=== PATIENT | female | born 1960 | race Caucasian/White ===

== ENCOUNTER → 2016-12-07 | Outpatient (CLI) | payer OTHER ==
--- NOTE | 2016-12-08 01:35 | REP ---
Clinical: Lower back pain. Technique: AP, lateral, bilateral oblique and coned-down views of the lumbosacral spine. Comparison: 05/27/2007. Findings: Mild chronic dextroconvex scoliosis is again appreciated. Grade 1 anterolisthesis at the L4-5 level of approximately 4 mm noted. Advanced multilevel degenerative changes are also appreciated throughout the visualized lower thoracic to lumbosacral spine. Findings include marginal osteophytes, endplate sclerosis, disc space narrowing and hypertrophic facet changes. No acute fracture / compression injury. Impression: 1. Grade 1 anterolisthesis at the L4-5 level. 2. Moderate to advanced multilevel degenerative changes throughout the visualized thoracolumbar spine. 3. No acute fracture / compression injury Signed by Luc Chau MD 12/08/2016 01:27 A
== END ==
LOC: M LRY 12:22
PROVIDERS: ATTEND Family Medicine
DX: M51.36 Other intervertebral disc degeneration, lumbar region (principal); M43.16 Spondylolisthesis, lumbar region; M54.5 Low back pain

== ENCOUNTER → 2016-12-11 | Outpatient (REF) | payer OTHER ==
[2016-12-11 16:57] LABS: MEAN CORPUSCULAR HEMOGLOBIN 30.1 pg (27.0-33.0); MEAN CORPUSCULAR HGB CONC 34.8 g/dl (32.0-36.5); MEAN CORPUSCULAR VOLUME 86.6 fl (80.0-96.0); RED CELL DISTRIBUTION WIDTH 12.7 % (11.5-14.5); WHITE BLOOD COUNT 7.5 K/mm3 (4.0-10.0)
[2016-12-11 17:11] LABS: ALBUMIN 3.8 GM/DL (3.2-5.2); ANION GAP 8 MEQ/L (8-16); BLOOD UREA NITROGEN 24 MG/DL (7-18); CARBON DIOXIDE LEVEL 28 MEQ/L (21-32); CHLORIDE LEVEL 101 MEQ/L (98-107); CHOLESTEROL LEVEL 219 MG/DL (<200); CREATININE FOR GFR 0.69 MG/DL (0.55-1.02); GLOMERULAR FILTRATION RATE > 60.0 (>51); GLUCOSE, FASTING 285 MG/DL (70-105); PHOSPHORUS LEVEL 3.8 MG/DL (2.5-4.9); POTASSIUM SERUM 4.9 MEQ/L (3.5-5.1); SODIUM LEVEL 137 MEQ/L (136-145); TRIGLYCERIDES LEVEL 234 MG/DL (<150)
== END ==
LOC: M SFHCLERA 10:06
PROVIDERS: ATTEND Family Medicine
DX: E53.8 Deficiency of other specified B group vitamins (principal); E11.40 Type 2 diabetes mellitus with diabetic neuropathy, unspecified; E78.5 Hyperlipidemia, unspecified; I10 Essential (primary) hypertension

== ENCOUNTER → 2017-01-26 | Outpatient (REF) | payer OTHER | LOC: M SFHCWAGY 13:21 | PROVIDERS: ATTEND Family Medicine | DX: Z12.4 Encounter for screening for malignant neoplasm of cervix (principal) ==

== ENCOUNTER → 2017-03-22 | Outpatient (REF) | payer OTHER ==
[2017-03-22 16:27] LABS: VITAMIN B12 LEVEL 297 PG/ML (247-911)
[2017-03-22 16:32] LABS: ALBUMIN 3.9 GM/DL (3.2-5.2); ALBUMIN/GLOBULIN RATIO 1.44 (1.00-1.93); ALKALINE PHOSPHATASE 57 U/L (45-117); ALT/SGPT 25 U/L (12-78); ANION GAP 10 MEQ/L (8-16); AST/SGOT 9 U/L (15-37); BILIRUBIN,TOTAL 0.9 MG/DL (0.2-1.0); BLOOD UREA NITROGEN 18 MG/DL (7-18); CALCIUM LEVEL 8.9 MG/DL (8.5-10.1); CARBON DIOXIDE LEVEL 26 MEQ/L (21-32); CHLORIDE LEVEL 100 MEQ/L (98-107); CHOLESTEROL LEVEL 129 MG/DL (<200); CREATININE FOR GFR 0.59 MG/DL (0.55-1.02); GLOMERULAR FILTRATION RATE > 60.0 (>51); GLUCOSE, FASTING 337 MG/DL (70-105); POTASSIUM SERUM 4.3 MEQ/L (3.5-5.1); SODIUM LEVEL 136 MEQ/L (136-145); TOTAL PROTEIN 6.6 GM/DL (6.4-8.2); TRIGLYCERIDES LEVEL 224 MG/DL (<150)
[2017-03-22 17:53] LABS: MEAN CORPUSCULAR HEMOGLOBIN 28.2 pg (27.0-33.0); MEAN CORPUSCULAR HGB CONC 33.3 g/dl (32.0-36.5); MEAN CORPUSCULAR VOLUME 84.5 fl (80.0-96.0); RED CELL DISTRIBUTION WIDTH 12.6 % (11.5-14.5); WHITE BLOOD COUNT 8.4 10^3/uL (4.0-10.0)
[2017-03-22 21:36] LABS: EOSINOPHILS 2 % (0-5); PLATELET CLUMPS SMALL AMT
== END ==
LOC: M SFHCLERA 11:32
PROVIDERS: ATTEND Family Medicine
DX: E11.65 Type 2 diabetes mellitus with hyperglycemia (principal); Z86.39 Personal history of other endocrine, nutritional and metabolic disease

== ENCOUNTER → 2017-04-03 | Outpatient (REF) | payer OTHER | LOC: M SFHCLERA 10:44 | PROVIDERS: ATTEND Family Medicine | DX: E53.8 Deficiency of other specified B group vitamins (principal) ==

== ENCOUNTER → 2017-04-17 | Outpatient (CLI) | payer OTHER ==
--- NOTE | 2017-04-17 14:15 | REP ---
BILATERAL SCREENING DIGITAL MAMMOGRAM: There are no palpable abnormalities or other breast complaints. The patient states that she/he has not had a clinical breast exam in over a year. Comparison is 10/22/2013. There is mildly dense breast parenchyma, unchanged. There are benign calcifications. There is a stable 14 mm nodule in the right breast, unchanged. There has been no interval development of masses, areas of structural distortion or clusters of microcalcifications typical of malignancy. IMPRESSION: There is no evidence of malignancy. BIRADS category 2 benign findings. The patient should have a repeat mammogram in 1 year. This mammogram was interpreted with the aid of an FDA-approved computer-aided detection system. A. Negative x-ray reports should not delay biopsy if a dominant or clinically suspicious mass is present. B. Not all breast cancers are t identified by x-ray. C. Adenosis and dense breasts may obscure an underlying neoplasm. Patient letter M1.
== END ==
LOC: M WHC 12:31
PROVIDERS: ATTEND Family Medicine
DX: Z12.31 Encounter for screening mammogram for malignant neoplasm of breast (principal)

== ENCOUNTER → 2017-07-24 | Outpatient (REF) | payer OTHER ==
[2017-07-24 12:10] LABS: ESTIMATED AVERAGE GLUCOSE 183 MG/DL (60-110)
== END ==
LOC: M SFHCLERA 08:52
DX: E11.65 Type 2 diabetes mellitus with hyperglycemia (principal)
CPT/HCPCS: 83036

== ENCOUNTER → 2017-09-07 | Outpatient (CLI) | payer OTHER | LOC: M LRY 10:38 | DX: M16.0 Bilateral primary osteoarthritis of hip (principal); M25.552 Pain in left hip; M25.551 Pain in right hip | CPT/HCPCS: 73502 ==

== ENCOUNTER → 2017-09-07 | Outpatient (REF) | payer OTHER ==
[2017-09-07 17:13] LABS: HEMATOCRIT 40.9 % (36.0-47.0); HEMOGLOBIN 13.4 g/dl (12.0-16.0); MEAN CORPUSCULAR HEMOGLOBIN 27.9 pg (27.0-33.0); MEAN CORPUSCULAR HGB CONC 32.8 g/dl (32.0-36.5); MEAN CORPUSCULAR VOLUME 85.2 fl (80.0-96.0); PLATELET COUNT, AUTOMATED 229 10^3/uL (150-450); RED CELL DISTRIBUTION WIDTH 12.5 % (11.5-14.5); WHITE BLOOD COUNT 9.6 10^3/uL (4.0-10.0)
[2017-09-07 17:31] LABS: ALBUMIN 3.9 GM/DL (3.2-5.2); ALBUMIN/GLOBULIN RATIO 1.39 (1.00-1.93); ALKALINE PHOSPHATASE 66 U/L (45-117); ALT/SGPT 21 U/L (12-78); ANION GAP 9 MEQ/L (8-16); AST/SGOT 9 U/L (7-37); BILIRUBIN,TOTAL 0.9 MG/DL (0.2-1.0); BLOOD UREA NITROGEN 15 MG/DL (7-18); C REACTIVE PROTEIN QUANTITATIV < 0.30 MG/DL (0.00-0.30); CALCIUM LEVEL 8.5 MG/DL (8.5-10.1); CARBON DIOXIDE LEVEL 30 MEQ/L (21-32); CHLORIDE LEVEL 102 MEQ/L (98-107); CREATININE FOR GFR 0.54 MG/DL (0.55-1.30); GLOMERULAR FILTRATION RATE > 60.0 (>51); GLUCOSE, FASTING 159 MG/DL (70-100); LIPASE 112 U/L (73-393); POTASSIUM SERUM 3.8 MEQ/L (3.5-5.1); RHEUMATOID FACTOR QUANT < 10.0 IU/ML (0-15.0); SODIUM LEVEL 141 MEQ/L (136-145); TOTAL PROTEIN 6.7 GM/DL (6.4-8.2)
[2017-09-07 17:43] LABS: ERYTHROCYTE SEDIMENTATION RATE 10 mm/hr (0-30)
[2017-09-11 00:07] LABS: ANTI DOUBLE STRAND-DNA AB 10 IU/mL (0-9); ANTINUCLEAR ANTIBODIES DIRECT Positive (Negative); RNP ANTIBODIES <0.2 AI (0.0-0.9); SJOGREN'S ANTI SS-A <0.2 AI (0.0-0.9); SJOGREN'S ANTI SS-B <0.2 AI (0.0-0.9); SMITH ANTIBODIES <0.2 AI (0.0-0.9)
== END ==
LOC: M SFHCLERA 10:26
DX: M25.50 Pain in unspecified joint (principal); R06.09 Other forms of dyspnea

== ENCOUNTER 2017-10-11 11:10 | Day surgery (SDC) | payer OTHER ==
[~2017-10-11 11:10] MED LIST: LIDOCAINE 2% MDV 20 ML VIAL As Ordered; PROPOFOL 200 MG/20 ML VIAL As Ordered
[2017-10-11] MEDS: NS 1,000 ML IV (12:42)
[2017-10-11] MEDS ORDERED: PROPOFOL 200 MG/20 ML VIAL As Ordered (13:59)
== END 2017-10-11 14:50 | disposition home or self-care (01) ==
LOC: M OPP 11:10
DX: Z12.11 Encounter for screening for malignant neoplasm of colon (principal); D12.2 Benign neoplasm of ascending colon; D12.4 Benign neoplasm of descending colon; D12.3 Benign neoplasm of transverse colon; K57.30 Diverticulosis of large intestine without perforation or abscess without bleeding; K64.8 Other hemorrhoids; R12 Heartburn; K31.7 Polyp of stomach and duodenum; R07.89 Other chest pain; I10 Essential (primary) hypertension; E78.5 Hyperlipidemia, unspecified; E10.9 Type 1 diabetes mellitus without complications; K21.9 Gastro-esophageal reflux disease without esophagitis; M19.90 Unspecified osteoarthritis, unspecified site; M54.9 Dorsalgia, unspecified; M79.7 Fibromyalgia; M32.9 Systemic lupus erythematosus, unspecified; F41.9 Anxiety disorder, unspecified; F32.9 Major depressive disorder, single episode, unspecified; R06.83 Snoring; G47.30 Sleep apnea, unspecified; Z79.82 Long term (current) use of aspirin; Z79.899 Other long term (current) drug therapy; Z79.4 Long term (current) use of insulin; Z80.9 Family history of malignant neoplasm, unspecified
CPT/HCPCS: 45385

== ENCOUNTER → 2018-01-02 | Outpatient (REF) | payer OTHER ==
[2018-01-02 16:41] LABS: BASO # 0.1 10^3/uL (0.0-0.2); BASO % 0.3 % (0.0-1.0); EOS # 0.1 10^3/uL (0.0-0.50); EOS % 0.5 % (0.0-3.0); HEMATOCRIT 36.8 % (36.0-47.0); IMMATURE GRANULOCYTE % 0.4 % (0-3.0); LYMPH # 3.3 10^3/uL (1.5-4.5); MEAN CORPUSCULAR HGB CONC 32.6 g/dl (32.0-36.5); MEAN CORPUSCULAR VOLUME 82.7 fl (80.0-96.0); MONO # 0.8 10^3/uL (0.0-0.8); MONO % 5.9 % (0.0-5.0); NEUTROPHILS % 69.9 % (36.0-66.0); PLATELET COUNT, AUTOMATED 317 10^3/uL (150-450); RED BLOOD COUNT 4.45 10^6/uL (4.00-5.40); RED CELL DISTRIBUTION WIDTH 14.3 % (11.5-14.5); WHITE BLOOD COUNT 14.3 10^3/uL (4.0-10.0)
[2018-01-02 17:04] LABS: ALBUMIN 3.1 GM/DL (3.2-5.2); ALBUMIN/GLOBULIN RATIO 0.86 (1.00-1.93); ALKALINE PHOSPHATASE 67 U/L (45-117); ALT/SGPT 16 U/L (12-78); ANION GAP 11 MEQ/L (8-16); AST/SGOT 11 U/L (7-37); BILIRUBIN,TOTAL 0.5 MG/DL (0.2-1.0); BLOOD UREA NITROGEN 18 MG/DL (7-18); CALCIUM LEVEL 8.6 MG/DL (8.5-10.1); CARBON DIOXIDE LEVEL 23 MEQ/L (21-32); CHLORIDE LEVEL 104 MEQ/L (98-107); CHOLESTEROL LEVEL 118 MG/DL (<200); CREATININE FOR GFR 0.98 MG/DL (0.55-1.30); GLOMERULAR FILTRATION RATE > 60.0 (>51); GLUCOSE, FASTING 154 MG/DL (70-100); HDL CHOLESTEROL 50 MG/DL (>40); NON-HDL-C 68 MG/DL; POTASSIUM SERUM 5.1 MEQ/L (3.5-5.1); SODIUM LEVEL 138 MEQ/L (136-145); TOTAL PROTEIN 6.7 GM/DL (6.4-8.2); TRIGLYCERIDES LEVEL 190 MG/DL (<150)
[2018-01-02 17:20] LABS: ESTIMATED AVERAGE GLUCOSE 154 MG/DL (60-110)
[2018-01-02 17:40] LABS: MAU/CREAT RATIO 356.7 MCG/MG (0.0-30.0)
== END ==
LOC: M SFHCLERA 13:34
DX: E11.40 Type 2 diabetes mellitus with diabetic neuropathy, unspecified (principal); K21.9 Gastro-esophageal reflux disease without esophagitis
CPT/HCPCS: 83735

== ENCOUNTER → 2018-01-04 | Outpatient (REF) | payer OTHER ==
[2018-01-04 11:40] LABS: MAGNESIUM LEVEL 1.1 MG/DL (1.8-2.4)
== END ==
LOC: M SFHCLERA 09:26
DX: K21.9 Gastro-esophageal reflux disease without esophagitis (principal)
CPT/HCPCS: 83735

== ENCOUNTER → 2018-01-07 | Outpatient (REF) | payer OTHER ==
[2018-01-07 18:00] LABS: MAGNESIUM LEVEL 1.5 MG/DL (1.8-2.4)
== END ==
LOC: M SFHCLERA 13:06
DX: E83.42 Hypomagnesemia (principal)
CPT/HCPCS: 83735

== ENCOUNTER → 2018-01-17 | Outpatient (REF) | payer OTHER ==
[2018-01-17 16:58] LABS: MAGNESIUM LEVEL 1.1 MG/DL (1.8-2.4)
== END ==
LOC: M SFHCLERA 12:03
DX: E83.42 Hypomagnesemia (principal)
CPT/HCPCS: 83735

== ENCOUNTER → 2018-01-22 | Outpatient (REF) | payer OTHER ==
[2018-01-22 16:45] LABS: MAGNESIUM LEVEL 1.3 MG/DL (1.8-2.4)
== END ==
LOC: M SFHCLERA 11:47
DX: E83.42 Hypomagnesemia (principal)

== ENCOUNTER → 2018-01-30 | Outpatient (REF) | payer OTHER ==
[2018-01-30 17:21] LABS: MAGNESIUM LEVEL 1.5 MG/DL (1.8-2.4)
== END ==
LOC: M SFHCLERA 11:03
DX: K21.9 Gastro-esophageal reflux disease without esophagitis (principal)
CPT/HCPCS: 83735

== ENCOUNTER → 2018-02-05 | Outpatient (REF) | payer OTHER ==
[2018-02-05 12:20] LABS: ALBUMIN 3.2 GM/DL (3.2-5.2); ALBUMIN/GLOBULIN RATIO 1.03 (1.00-1.93); ALKALINE PHOSPHATASE 55 U/L (45-117); ALT/SGPT 14 U/L (12-78); ANION GAP 7 MEQ/L (8-16); AST/SGOT 8 U/L (7-37); BILIRUBIN,TOTAL 0.4 MG/DL (0.2-1.0); BLOOD UREA NITROGEN 17 MG/DL (7-18); CARBON DIOXIDE LEVEL 29 MEQ/L (21-32); CHLORIDE LEVEL 102 MEQ/L (98-107); GLOMERULAR FILTRATION RATE > 60.0 (>51); GLUCOSE, FASTING 163 MG/DL (70-100); MAGNESIUM LEVEL 1.6 MG/DL (1.8-2.4); PHOSPHORUS LEVEL 4.4 MG/DL (2.5-4.9); POTASSIUM SERUM 4.8 MEQ/L (3.5-5.1); SODIUM LEVEL 138 MEQ/L (136-145); TOTAL PROTEIN 6.3 GM/DL (6.4-8.2)
[2018-02-05 12:22] LABS: CREATININE,RANDOM URINE 85.1 MG/DL
== END ==
LOC: M SFHCLERA 09:51
DX: E83.42 Hypomagnesemia (principal)
CPT/HCPCS: 83735

== ENCOUNTER → 2018-02-20 | Outpatient (REF) | payer OTHER ==
[2018-02-20 12:02] LABS: ANION GAP 9 MEQ/L (8-16); BLOOD UREA NITROGEN 12 MG/DL (7-18); CALCIUM LEVEL 8.8 MG/DL (8.5-10.1); CARBON DIOXIDE LEVEL 26 MEQ/L (21-32); CHLORIDE LEVEL 105 MEQ/L (98-107); CREATININE FOR GFR 0.91 MG/DL (0.55-1.30); GLOMERULAR FILTRATION RATE > 60.0 (>51); GLUCOSE, FASTING 178 MG/DL (70-100); MAGNESIUM LEVEL 1.7 MG/DL (1.8-2.4); SODIUM LEVEL 140 MEQ/L (136-145)
[2018-02-20 12:15] LABS: POTASSIUM SERUM 5.2 MEQ/L (3.5-5.1); PTH INTACT 33.4 PG/ML (18.5-88.0)
== END ==
LOC: M SFHCLERA 10:18
DX: E83.42 Hypomagnesemia (principal)
CPT/HCPCS: 83735

== ENCOUNTER → 2018-03-11 | Outpatient (REF) | payer OTHER ==
[2018-03-11 17:42] LABS: ANION GAP 11 MEQ/L (8-16); BLOOD UREA NITROGEN 15 MG/DL (7-18); CALCIUM LEVEL 9.4 MG/DL (8.5-10.1); CARBON DIOXIDE LEVEL 22 MEQ/L (21-32); CHLORIDE LEVEL 109 MEQ/L (98-107); CREATININE FOR GFR 0.85 MG/DL (0.55-1.30); GLOMERULAR FILTRATION RATE > 60.0 (>51); GLUCOSE, FASTING 103 MG/DL (70-100); MAGNESIUM LEVEL 1.9 MG/DL (1.8-2.4); POTASSIUM SERUM 5.6 MEQ/L (3.5-5.1); SODIUM LEVEL 142 MEQ/L (136-145)
== END ==
LOC: M SFHCLERA 12:42
DX: E83.42 Hypomagnesemia (principal)

== ENCOUNTER → 2018-03-14 | Outpatient (REF) | payer OTHER ==
[2018-03-14 13:41] LABS: POTASSIUM SERUM 4.8 MEQ/L (3.5-5.1)
== END ==
LOC: M SFHCLERA 09:54
DX: E87.5 Hyperkalemia (principal)

== ENCOUNTER → 2018-03-21 | Outpatient (REF) | payer OTHER ==
[2018-03-21 12:21] LABS: APPEARANCE, URINE CLOUDY (CLEAR); BACTERIA, URINE AUTO 3+ (NEGATIVE); BILIRUBIN, URINE AUTO NEGATIVE (NEGATIVE); BLOOD, URINE BLOOD NEGATIVE (NEGATIVE); COLOR, URINE YELLOW (YELLOW); GLUCOSE, URINE (UA) AUTO NEGATIVE (NEGATIVE); KETONE, URINE AUTO NEGATIVE (NEGATIVE); LEUKOCYTE ESTERASE, URINE AUTO 3+ (NEGATIVE); MUCUS, URINE SMALL (NEGATIVE); NITRITE, URINE AUTO NEGATIVE (NEGATIVE); PROTEIN, URINE AUTO 1+ mg/dL (NEGATIVE); RBC, URINE AUTO 13 /HPF (0-3); SPECIFIC GRAVITY URINE AUTO 1.017 (1.002-1.035); SQUAMOUS EPITHELIAL CELL UR AU 1 /HPF (0-6); UROBILINOGEN, URINE AUTO 0.2 mg/dL (0.0-2.0); WBC, URINE AUTO TNTC /HPF (0-3)
[2018-03-21 12:37] LABS: TOTAL PROTEIN,RANDOM URINE 46.1 MG/DL (0.0-12.0)
[2018-03-21 12:41] LABS: COMPLEMENT C3 92 MG/DL (90-180)
[2018-03-27 00:06] LABS: ANTI-HISTONE ANTIBODIES 1.2 Units (0.0-0.9)
[2018-03-27 00:06] LABS: ANA (HEP2) Negative (.)
== END ==
LOC: M SFHCLERA 10:08
DX: R76.8 Other specified abnormal immunological findings in serum (principal)

== ENCOUNTER → 2018-03-27 | Outpatient (REF) | payer OTHER ==
[2018-03-27 18:12] LABS: APPEARANCE, URINE TURBID (CLEAR); BACTERIA, URINE AUTO 3+ (NEGATIVE); BILIRUBIN, URINE AUTO NEGATIVE (NEGATIVE); BLOOD, URINE BLOOD NEGATIVE (NEGATIVE); COLOR, URINE YELLOW (YELLOW); GLUCOSE, URINE (UA) AUTO NEGATIVE (NEGATIVE); KETONE, URINE AUTO TRACE mg/dL (NEGATIVE); LEUKOCYTE ESTERASE, URINE AUTO 2+ (NEGATIVE); NITRITE, URINE AUTO POSITIVE (NEGATIVE); PROTEIN, URINE AUTO NEGATIVE (NEGATIVE); RBC, URINE AUTO 30 /HPF (0-3); SPECIFIC GRAVITY URINE AUTO 1.012 (1.002-1.035); SQUAMOUS EPITHELIAL CELL UR AU 1 /HPF (0-6); UROBILINOGEN, URINE AUTO 0.2 mg/dL (0.0-2.0); WBC, URINE AUTO TNTC /HPF (0-3); YEAST LIKE CELL URINE AUTO SMALL
== END ==
LOC: M SFHCLERA 17:03
DX: R82.90 Unspecified abnormal findings in urine (principal)

== ENCOUNTER → 2018-04-10 | Outpatient (REF) | payer OTHER ==
[2018-04-10 17:47] LABS: MAGNESIUM LEVEL 1.5 MG/DL (1.8-2.4)
[2018-04-10 17:47] LABS: POTASSIUM SERUM 5.9 MEQ/L (3.5-5.1)
[2018-04-10 18:35] LABS: ESTIMATED AVERAGE GLUCOSE 117 MG/DL (60-110); HEMOGLOBIN A1c 5.7 %
== END ==
LOC: M SFHCLERA 12:43
DX: E83.42 Hypomagnesemia (principal); E11.40 Type 2 diabetes mellitus with diabetic neuropathy, unspecified
CPT/HCPCS: 83735

== ENCOUNTER → 2018-04-12 | Outpatient (REF) | payer OTHER ==
[2018-04-12 13:20] LABS: ANION GAP 10 MEQ/L (8-16); BLOOD UREA NITROGEN 18 MG/DL (7-18); CALCIUM LEVEL 8.9 MG/DL (8.5-10.1); CARBON DIOXIDE LEVEL 25 MEQ/L (21-32); CHLORIDE LEVEL 106 MEQ/L (98-107); CREATININE FOR GFR 0.88 MG/DL (0.55-1.30); GLOMERULAR FILTRATION RATE > 60.0 (>51); GLUCOSE, FASTING 183 MG/DL (70-100); POTASSIUM SERUM 4.9 MEQ/L (3.5-5.1); SODIUM LEVEL 141 MEQ/L (136-145)
[2018-04-17 14:10] LABS: ALDOS/RENIN RATIO 8.3 (0.0-30.0); ALDOSTERONE 4.5 ng/dL (0.0-30.0)
== END ==
LOC: M SFHCLERA 08:43
DX: E87.5 Hyperkalemia (principal)
CPT/HCPCS: 84244

== ENCOUNTER → 2018-04-17 | Outpatient (CLI) | payer OTHER | LOC: M LAB 07:46 | DX: E87.5 Hyperkalemia (principal) | CPT/HCPCS: 82533 ==

== ENCOUNTER → 2018-05-21 | Outpatient (REF) | payer OTHER ==
[2018-05-21 12:33] LABS: ANION GAP 10 MEQ/L (8-16); BLOOD UREA NITROGEN 24 MG/DL (7-18); CARBON DIOXIDE LEVEL 24 MEQ/L (21-32); CHLORIDE LEVEL 107 MEQ/L (98-107); CREATININE FOR GFR 0.93 MG/DL (0.55-1.30); GLOMERULAR FILTRATION RATE > 60.0 (>51); GLUCOSE, FASTING 123 MG/DL (70-100); MAGNESIUM LEVEL 1.7 MG/DL (1.8-2.4); POTASSIUM SERUM 5.2 MEQ/L (3.5-5.1); SODIUM LEVEL 141 MEQ/L (136-145)
== END ==
LOC: M SFHCLERA 09:31
DX: E83.42 Hypomagnesemia (principal); E87.5 Hyperkalemia
CPT/HCPCS: 83735

== ENCOUNTER → 2018-06-20 | Outpatient (REF) | payer OTHER ==
[~2018-06-20] MED LIST changes: +ALL10TAB28 PO; +AMLO5TAB6 PO; +ASPI81TA85 PO; +BASA100I SC; +BENA20TA PO; +FLON1SPR; -LIDOCAINE 2% MDV 20 ML VIAL As Ordered; +METF10004 PO; +OMEP40CA2 PO; -PROPOFOL 200 MG/20 ML VIAL As Ordered
[2018-06-20 12:06] LABS: CALCIUM LEVEL 8.7 MG/DL (8.5-10.1); CREATININE FOR GFR 1.02 MG/DL (0.55-1.30); MAGNESIUM LEVEL 1.7 MG/DL (1.8-2.4); POTASSIUM SERUM 5.1 MEQ/L (3.5-5.1)
== END ==
LOC: M SFHCLERA 09:21
PROVIDERS: ATTEND Family Medicine
DX: E83.42 Hypomagnesemia (principal); E87.5 Hyperkalemia

== ENCOUNTER → 2018-09-10 | Outpatient (REF) | payer OTHER ==
[2018-09-10 12:03] LABS: BLOOD UREA NITROGEN 37 MG/DL (7-18); CARBON DIOXIDE LEVEL 29 MEQ/L (21-32); CHLORIDE LEVEL 107 MEQ/L (98-107); CHOLESTEROL LEVEL 133 MG/DL (<200); CHOLESTEROL RISK RATIO 2.375 (<5); CREATININE FOR GFR 0.98 MG/DL (0.55-1.30); GLOMERULAR FILTRATION RATE > 60.0 (>45); GLUCOSE, FASTING 117 MG/DL (70-100); HDL CHOLESTEROL 56 MG/DL (>40); LDL CHOLESTEROL 57 MG/DL (<100); MAGNESIUM LEVEL 1.7 MG/DL (1.8-2.4); NON-HDL-C 77 MG/DL; POTASSIUM SERUM 5.2 MEQ/L (3.5-5.1); SODIUM LEVEL 142 MEQ/L (136-145); TRIGLYCERIDES LEVEL 102 MG/DL (<150)
[2018-09-10 13:38] LABS: HEMOGLOBIN A1c 5.7 %
== END ==
LOC: M SFHCLERA 09:11
PROVIDERS: ATTEND Family Medicine
DX: E83.42 Hypomagnesemia (principal); E11.65 Type 2 diabetes mellitus with hyperglycemia; E78.5 Hyperlipidemia, unspecified

== ENCOUNTER → 2018-09-25 | Outpatient (CLI) | payer OTHER ==
--- NOTE | 2018-09-25 10:38 | REP ---
Chest two views HISTORY: amiodarone screen Comparison: None Linear density is present in the left lower lobe consistent with atelectasis or scar. The heart is normal in size. The pulmonary vasculature is normal in appearance. The bony structure is intact. A cardiac pacemaker is present. IMPRESSION: Left lower lobe atelectasis or scar. Electronically Signed by Nitesh Phillips MD 09/25/2018 10:29 A
== END ==
LOC: M LRY 09:27
PROVIDERS: ATTEND Family Medicine
DX: Z79.899 Other long term (current) drug therapy (principal)

== ENCOUNTER → 2018-10-16 | Outpatient (CLI) | payer OTHER ==
--- NOTE | 2018-10-16 14:06 | REP ---
BILATERAL HAND, NINE VIEWS: HISTORY: Psoriasis. RIGHT HAND: There is no acute fracture or dislocation. There is narrowing of the interphalangea joint of the first digit with associated osteophyte formation. Osteophytes are present at the interphalangeal joint of the second digit and distal interphalangeal joints of the second-fourth digits. A subchondral cyst is present in the base of the distal phalangeal of the third digit. Calcified density is present adjacent to the ulnar styloid process. This may represent an old avulsion fracture fragment or ligamentous or tendon calcification. IMPRESSION: Degenerative change as described above. LEFT HAND: There is no acute fracture or dislocation. There is narrowing of the interphalangeal joint of the first digit with associated osteophyte formation. Osteophytes are present at the distal interphalangeal joints of the second and third digits. IMPRESSION: Degenerative change as described above. Electronically Signed by Nitesh Phillips MD 10/16/2018 02:14 P
== END ==
LOC: M LRY 11:30
PROVIDERS: ATTEND Dermatology
DX: L40.9 Psoriasis, unspecified (principal); M25.741 Osteophyte, right hand; M25.742 Osteophyte, left hand; M85.441 Solitary bone cyst, right hand

== ENCOUNTER → 2018-12-18 | Outpatient (CLI) | payer OTHER ==
--- NOTE | 2018-12-18 12:44 | PFTRPT ---
Height: 61.00 Inches Weight: 185.00 Lbs BSA: 1.83 Diagnosis: Z79.899 DATE OF PROCEDURE: 12/18/2018 ORDERED BY: Dr. Morris Graham Spirometry: Study of excellent technical quality. Forced vital capacity mildly reduced. FEV1 is in proportion. Obstructive index is, therefore, normal. Flow Volume Loop: Expiratory limb of the flow volume loop suggests a nonspecific flow rate limitation, and suboptimal effort cannot be ruled out. Lung Volumes: Total lung capacity normal. Residual volume borderline for air trapping. Diffusing Capacity: Diffusing capacity, although reduced, is appropriate for alveolar volume. Hemoglobin: No hemoglobin available for correction. Airway Mechanics: Airway resistance and conductance are normal. IMPRESSION: Mild decline in the absolute diffusing capacity requires clinical correlation. MTDD
--- NOTE | 2018-12-19 09:35 | PULFX ---
DATE OF PROCEDURE: 12/18/2018 ORDERING PROVIDER: Dr. Morris Graham. INTERPRETATION: The study is of excellent technical quality. Forced vital mildly reduced. FEV1 is proportion. Obstructive index, is therefore normal. FLOW VOLUME LOOP: Expiratory limb of the flow volume suggests a nonspecific flow rate limitation and suboptimal effort cannot be ruled out. LUNG VOLUMES: Total lung capacity normal. Residual volume is borderline for air trapping. DIFFUSING CAPACITY: Diffuse capacity, although reduced is appropriate for alveolar volume. HEMOGLOBIN: No hemoglobin available for correction. AIRWAY MECHANICS: Airways resistance and conductance are normal. IMPRESSION: Mild decline in the actual diffusion capacity requires clinical correlation
== END ==
LOC: M CARPUL 12:12
PROVIDERS: ATTEND Family Medicine
DX: Z79.899 Other long term (current) drug therapy (principal)

== ENCOUNTER → 2018-12-31 | Outpatient (REF) | payer OTHER ==
[2018-12-31 12:04] LABS: ALBUMIN 3.7 GM/DL (3.2-5.2); BILIRUBIN,TOTAL 0.5 MG/DL (0.2-1.0); CALCIUM LEVEL 8.3 MG/DL (8.8-10.2); CREATININE FOR GFR 1.05 MG/DL (0.55-1.30); GLOMERULAR FILTRATION RATE 56.9 (>45); MAGNESIUM LEVEL 1.8 MG/DL (1.8-2.4); POTASSIUM SERUM 5.1 MEQ/L (3.5-5.1); THYROID STIMULATING HORMONE 1.76 uIU/ML (0.358-3.740); TOTAL PROTEIN 6.6 GM/DL (6.4-8.2)
[2018-12-31 12:26] LABS: HEMOGLOBIN A1c 6.2 %
== END ==
LOC: M SFHCLERA 09:44
PROVIDERS: ATTEND Family Medicine
DX: E11.40 Type 2 diabetes mellitus with diabetic neuropathy, unspecified (principal)

== ENCOUNTER → 2019-04-02 | Outpatient (CLI) | payer OTHER ==
[~2019-04-02] MED LIST changes: -ALL10TAB28 PO; +ALL10TAB29 PO
--- NOTE | 2019-04-02 12:56 | REP ---
Lumbar spine three views: There are no comparisons. There is mild scoliosis convex right. There is advanced degenerative disc disease with disc vacuum phenomenon at T11-T12. There is advanced degenerative disc disease at T12-L1 and L1-L2 . There is moderate degenerative disc disease at L2-3. There is advanced degenerative disc disease with disc vacuum phenomenon at L4-5. There is grade 1 anterolisthesis of L4. No spondylolysis is identified on these three views. The pedicles, facets and sacroiliac articulations are unremarkable. There are pelvic calcifications, likely phleboliths. Impression: Scoliosis. Multilevel degenerative disc disease as described. Grade 1 anterolisthesis of L4. Electronically Signed by Morris Ramirez MD 04/02/2019 12:48 P
--- NOTE | 2019-04-02 12:58 | REP ---
Left hip two-view : There is no fracture or dislocation. Mineralization and joint spaces are normal. There are calcifications at the the greater tuberosity compatible with calcific tendonitis. There is a surgical clip in the soft tissues of the thigh medially. There is a calcification in the soft tissues of the thigh medially. There are is calcified vascular atheroma in the left femoral artery. Impression: Possible greater trochanteric calcific tendonitis. Otherwise, negative left hip . Electronically Signed by Morris Ramirez MD 04/02/2019 12:49 P
== END ==
LOC: M LRY 09:49
PROVIDERS: ATTEND Family Medicine
DX: M41.9 Scoliosis, unspecified (principal); M51.35 Other intervertebral disc degeneration, thoracolumbar region; M51.36 Other intervertebral disc degeneration, lumbar region; M25.552 Pain in left hip

== ENCOUNTER → 2019-04-02 | Outpatient (REF) | payer OTHER ==
[2019-04-02 12:08] LABS: CALCIUM LEVEL 8.6 MG/DL (8.8-10.2); CREATININE FOR GFR 1.09 MG/DL (0.55-1.30); GLOMERULAR FILTRATION RATE 54.5 (>45); MAGNESIUM LEVEL 1.6 MG/DL (1.8-2.4); POTASSIUM SERUM 4.8 MEQ/L (3.5-5.1)
[2019-04-02 12:56] LABS: HEMOGLOBIN A1c 6.2 %
== END ==
LOC: M SFHCLERA 09:40
PROVIDERS: ATTEND Family Medicine
DX: E11.40 Type 2 diabetes mellitus with diabetic neuropathy, unspecified (principal); E83.42 Hypomagnesemia; I10 Essential (primary) hypertension

== ENCOUNTER → 2019-04-02 | Outpatient (CLI) | payer OTHER | LOC: M LRY 10:06 | PROVIDERS: ATTEND Family Medicine | DX: Z53.9 Procedure and treatment not carried out, unspecified reason (principal) ==

== ENCOUNTER → 2019-07-29 | Outpatient (REF) | payer MEDICAID, OTHER ==
[~2019-07-29] MED LIST changes: -OMEP40CA2 PO; +OMEP40CA97 PO
[2019-07-29 19:59] LABS: HEMOGLOBIN A1c 7.6 %
[2019-07-29 20:13] LABS: ALBUMIN 3.9 GM/DL (3.2-5.2); BILIRUBIN,TOTAL 0.4 MG/DL (0.2-1.0); CALCIUM LEVEL 9.2 MG/DL (8.8-10.2); CHOLESTEROL RISK RATIO 2.625 (<5); CREATININE FOR GFR 1.06 MG/DL (0.55-1.30); GLOMERULAR FILTRATION RATE 56.1 (>45); MAGNESIUM LEVEL 2.1 MG/DL (1.8-2.4); POTASSIUM SERUM 4.7 MEQ/L (3.5-5.1); TOTAL PROTEIN 6.7 GM/DL (6.4-8.2)
== END ==
LOC: M SFHCLERA 15:33
PROVIDERS: ATTEND Family Medicine
DX: E11.40 Type 2 diabetes mellitus with diabetic neuropathy, unspecified (principal); E78.5 Hyperlipidemia, unspecified; E83.42 Hypomagnesemia; I10 Essential (primary) hypertension

== ENCOUNTER → 2019-10-29 | Outpatient (REF) | payer MEDICAID, OTHER ==
[2019-10-29 10:27] LABS: BASO % 0.3 % (0.0-1.0); EOS # 0.3 10^3/uL (0.0-0.5); EOS % 3.8 % (0.0-3.0); HEMATOCRIT 36.7 % (36.0-47.0); HEMOGLOBIN 11.6 g/dl (12.0-15.5); LYMPH # 3.5 10^3/uL (1.5-5.0); LYMPH % 38.4 % (24.0-44.0); MEAN CORPUSCULAR HEMOGLOBIN 28.6 pg (27.0-33.0); MEAN CORPUSCULAR HGB CONC 31.6 g/dl (32.0-36.5); MEAN CORPUSCULAR VOLUME 90.4 fl (80.0-96.0); MONO # 0.6 10^3/uL (0.0-0.8); MONO % 6.8 % (0.0-5.0); NEUTROPHILS # 4.6 10^3/uL (1.5-8.5); NEUTROPHILS % 50.6 % (36.0-66.0); PLATELET COUNT, AUTOMATED 212 10^3/uL (150-450); RED BLOOD COUNT 4.06 10^6/uL (4.00-5.40)
[2019-10-29 10:32] LABS: BLOOD UREA NITROGEN 19 MG/DL (7-18); CARBON DIOXIDE LEVEL 28 MEQ/L (21-32); CHLORIDE LEVEL 106 MEQ/L (98-107); CHOLESTEROL LEVEL 144 MG/DL (<200); CHOLESTEROL RISK RATIO 2.571 (<5); CREATININE FOR GFR 0.99 MG/DL (0.55-1.30); GLOMERULAR FILTRATION RATE > 60.0 (>45); GLUCOSE, FASTING 128 MG/DL (70-100); HDL CHOLESTEROL 56 MG/DL (>40); LDL CHOLESTEROL 56 MG/DL (<100); NON-HDL-C 88 MG/DL; POTASSIUM SERUM 4.9 MEQ/L (3.5-5.1); SODIUM LEVEL 140 MEQ/L (136-145); TRIGLYCERIDES LEVEL 162 MG/DL (<150)
[2019-10-29 10:58] LABS: HEMOGLOBIN A1c 7.1 %
[2019-10-29 11:04] LABS: CREATININE, URINE 47.4 MG/DL; MAU/CREAT RATIO 248.9 MCG/MG (0.0-30.0)
== END ==
LOC: M SFHCLERA 08:34
PROVIDERS: ATTEND Family Medicine
DX: E11.40 Type 2 diabetes mellitus with diabetic neuropathy, unspecified (principal); E78.5 Hyperlipidemia, unspecified

== ENCOUNTER → 2020-03-17 | Outpatient (REF) | payer OTHER ==
[~2020-03-17] MED LIST changes: -ALL10TAB29 PO; +AMLO1TAB24 PO; -AMLO5TAB6 PO; -ASPI81TA85 PO; +ASPI81TA86 PO; +CETI-24 PO
[2020-03-17 12:17] LABS: BASO # 0.1 10^3/uL (0.0-0.2); BASO % 0.6 % (0.0-1.0); EOS # 0.3 10^3/uL (0.0-0.5); EOS % 3.9 % (0.0-3.0); HEMATOCRIT 36.5 % (36.0-47.0); HEMOGLOBIN 11.5 g/dl (12.0-15.5); LYMPH # 3.5 10^3/uL (1.5-5.0); LYMPH % 40.2 % (24.0-44.0); MEAN CORPUSCULAR HEMOGLOBIN 28.7 pg (27.0-33.0); MEAN CORPUSCULAR HGB CONC 31.5 g/dl (32.0-36.5); MONO # 0.5 10^3/uL (0.0-0.8); MONO % 6.1 % (0.0-5.0); NEUTROPHILS # 4.2 10^3/uL (1.5-8.5); NEUTROPHILS % 48.9 % (36.0-66.0); PLATELET COUNT, AUTOMATED 208 10^3/uL (150-450); RED BLOOD COUNT 4.01 10^6/uL (4.00-5.40); WHITE BLOOD COUNT 8.7 10^3/uL (4.0-10.0)
[2020-03-17 12:59] LABS: ALBUMIN 3.6 GM/DL (3.2-5.2); ALT/SGPT 18 U/L (12-78); BILIRUBIN,TOTAL 0.7 MG/DL (0.2-1.0); BLOOD UREA NITROGEN 28 MG/DL (7-18); CALCIUM LEVEL 8.9 MG/DL (8.8-10.2); CARBON DIOXIDE LEVEL 28 MEQ/L (21-32); CHLORIDE LEVEL 108 MEQ/L (98-107); CHOLESTEROL LEVEL 131 MG/DL (<200); CHOLESTEROL RISK RATIO 2.568 (<5); CREATININE FOR GFR 0.89 MG/DL (0.55-1.30); FREE T4 1.23 NG/DL (0.76-1.46); GLOMERULAR FILTRATION RATE > 60.0 (>45); GLUCOSE, FASTING 106 MG/DL (70-100); HDL CHOLESTEROL 51 MG/DL (>40); LDL CHOLESTEROL 53 MG/DL (<100); MAGNESIUM LEVEL 1.5 MG/DL (1.8-2.4); NON-HDL-C 80 MG/DL; POTASSIUM SERUM 5.1 MEQ/L (3.5-5.1); SODIUM LEVEL 142 MEQ/L (136-145); TOTAL PROTEIN 6.7 GM/DL (6.4-8.2); TRIGLYCERIDES LEVEL 134 MG/DL (<150)
[2020-03-17 13:18] LABS: HEMOGLOBIN A1c 6.2 %
== END ==
LOC: M SFHCCLAY 11:44
PROVIDERS: ATTEND Nurse Practitioner Family
DX: E11.9 Type 2 diabetes mellitus without complications (principal); I10 Essential (primary) hypertension

== ENCOUNTER → 2020-10-22 | Outpatient (REF) | payer OTHER ==
[2020-10-22 12:15] LABS: BASO # 0.1 10^3/uL (0.0-0.2); BASO % 0.6 % (0.0-1.0); EOS # 0.3 10^3/uL (0.0-0.5); EOS % 3.9 % (0.0-3.0); HEMATOCRIT 37.4 % (36.0-47.0); HEMOGLOBIN 11.7 g/dl (12.0-15.5); LYMPH # 2.9 10^3/uL (1.5-5.0); LYMPH % 36.9 % (24.0-44.0); MEAN CORPUSCULAR HEMOGLOBIN 27.9 pg (27.0-33.0); MEAN CORPUSCULAR HGB CONC 31.3 g/dl (32.0-36.5); MONO # 0.5 10^3/uL (0.0-0.8); NEUTROPHILS # 4.1 10^3/uL (1.5-8.5); NEUTROPHILS % 52.5 % (36.0-66.0); PLATELET COUNT, AUTOMATED 224 10^3/uL (150-450); WHITE BLOOD COUNT 7.7 10^3/uL (4.0-10.0)
[2020-10-22 12:57] LABS: ALBUMIN 3.7 GM/DL (3.2-5.2); ALT/SGPT 12 U/L (12-78); BILIRUBIN,TOTAL 0.6 MG/DL (0.2-1.0); BLOOD UREA NITROGEN 31 MG/DL (7-18); CALCIUM LEVEL 9.1 MG/DL (8.8-10.2); CARBON DIOXIDE LEVEL 29 MEQ/L (21-32); CHLORIDE LEVEL 109 MEQ/L (98-107); CHOLESTEROL LEVEL 153 MG/DL (<200); CREATININE FOR GFR 0.99 MG/DL (0.55-1.30); FREE T4 1.16 NG/DL (0.76-1.46); GLOMERULAR FILTRATION RATE > 60.0 (>45); GLUCOSE, FASTING 104 MG/DL (70-100); HDL CHOLESTEROL 51 MG/DL (>40); LDL CHOLESTEROL 70 MG/DL (<100); NON-HDL-C 102 MG/DL; POTASSIUM SERUM 4.9 MEQ/L (3.5-5.1); SODIUM LEVEL 142 MEQ/L (136-145); TOTAL PROTEIN 6.7 GM/DL (6.4-8.2); TRIGLYCERIDES LEVEL 161 MG/DL (<150)
[2020-10-22 13:45] LABS: HEMOGLOBIN A1c 7.2 %
[2020-10-26 09:07] LABS: MAGNESIUM LEVEL 1.6 MG/DL (1.8-2.4)
== END ==
LOC: M SFHCCLAY 09:00
PROVIDERS: ATTEND Nurse Practitioner Family
DX: E11.40 Type 2 diabetes mellitus with diabetic neuropathy, unspecified (principal); E83.42 Hypomagnesemia; E78.5 Hyperlipidemia, unspecified; I10 Essential (primary) hypertension; K21.9 Gastro-esophageal reflux disease without esophagitis

== ENCOUNTER → 2020-10-26 | Outpatient (REF) | payer OTHER | LOC: M SFHCCLAY 08:55 | PROVIDERS: ATTEND Nurse Practitioner Family | DX: E83.42 Hypomagnesemia (principal); Z53.9 Procedure and treatment not carried out, unspecified reason ==

== ENCOUNTER → 2021-04-28 | Outpatient (REF) | payer OTHER ==
[~2021-04-28] MED LIST changes: +OMEP40CA4 PO; -OMEP40CA97 PO
[2021-04-28 15:54] LABS: BASO % 0.5 % (0.0-1.0); EOS # 0.2 10^3/uL (0.0-0.5); EOS % 2.7 % (0.0-3.0); HEMATOCRIT 37.3 % (36.0-47.0); HEMOGLOBIN 11.6 g/dl (12.0-15.5); LYMPH % 36.1 % (24.0-44.0); MEAN CORPUSCULAR HEMOGLOBIN 27.5 pg (27.0-33.0); MEAN CORPUSCULAR HGB CONC 31.1 g/dl (32.0-36.5); MEAN CORPUSCULAR VOLUME 88.4 fl (80.0-96.0); MONO # 0.5 10^3/uL (0.0-0.8); MONO % 5.6 % (2.0-8.0); NEUTROPHILS # 4.5 10^3/uL (1.5-8.5); PLATELET COUNT, AUTOMATED 223 10^3/uL (150-450); RED BLOOD COUNT 4.22 10^6/uL (4.00-5.40); WHITE BLOOD COUNT 8.2 10^3/uL (4.0-10.0)
[2021-04-28 16:16] LABS: HEMOGLOBIN A1c 6.4 %
[2021-04-28 16:32] LABS: ALBUMIN 3.8 GM/DL (3.2-5.2); BILIRUBIN,TOTAL 0.6 MG/DL (0.2-1.0); CHOLESTEROL RISK RATIO 3.02 (<5); CREATININE FOR GFR 1.04 MG/DL (0.55-1.30); FREE T4 1.3 NG/DL (0.76-1.46); GLOMERULAR FILTRATION RATE 57.2 (>45); MAGNESIUM LEVEL 1.2 MG/DL (1.8-2.4); POTASSIUM SERUM 4.9 MEQ/L (3.5-5.1); THYROID STIMULATING HORMONE 0.704 uIU/ML (0.358-3.740); TOTAL PROTEIN 6.8 GM/DL (6.4-8.2)
== END ==
LOC: M SFHCCLAY 09:47
PROVIDERS: ATTEND Nurse Practitioner Family
DX: E11.40 Type 2 diabetes mellitus with diabetic neuropathy, unspecified (principal); E83.42 Hypomagnesemia; E78.5 Hyperlipidemia, unspecified; I10 Essential (primary) hypertension; K21.9 Gastro-esophageal reflux disease without esophagitis; F32.4 Major depressive disorder, single episode, in partial remission; R45.89 Other symptoms and signs involving emotional state

== ENCOUNTER → 2021-05-10 | Outpatient (CLI) | payer OTHER ==
[~2021-05-10] MED LIST changes: +ATOR1TAB19 PO; +BUSP5TA PO; +LISI-898 PO; +MAGN400C2 PO; +VITA1TAB26 PO
--- NOTE | 2021-05-10 08:56 | REP ---
INDICATION: RUQ PAIN COMPARISON: None TECHNIQUE: Real time B-mode garza scale ultrasound examination using curved array transducer. FINDINGS: Gallbladder is distended to 12.6 x 5.2 cm with mild wall thickening to 4 mm as well as layering sludge and gallstones measuring up to 11 mm diameter. There is evidence for intrahepatic biliary dilatation and common bile duct is dilated to 11 mm raising the possibility of choledocholithiasis. Liver is otherwise normal in appearance and echotexture without obvious focal hepatic lesion. Pancreas is incompletely evaluated due to interposed bowel gas. Spleen is mildly enlarged and measures 12.6 x 9.7 x 4.8 cm ([id number]) without focal splenic lesion identified. The bilateral kidneys are normal in reniform shape without hydronephrosis or obvious abnormality. Right kidney measures 11.1 x 5.4 x 5.2 cm. Left kidney measures 11.3 x 4.5 x 5.9 cm. No ascites noted. IMPRESSION: 1. Cholelithiasis and biliary dilatation raising the possibility of associated choledocholithiasis. Correlation is required. Early acute cholecystitis cannot be excluded as well. 2. Mild splenomegaly. <Electronically signed by Luc Chau > 05/10/21 0822
== END ==
LOC: M RAD 08:03
PROVIDERS: ATTEND Nurse Practitioner Family
DX: R10.11 Right upper quadrant pain (principal); K80.20 Calculus of gallbladder without cholecystitis without obstruction; K82.8 Other specified diseases of gallbladder

== ENCOUNTER 2021-05-11 12:48 | Outpatient (CLI) | payer OTHER ==
[~2021-05-11] VITALS: Ht 154.9 cm; Wt 93.1 kg
[~2021-05-11 12:48] MED LIST changes: -ATOR1TAB19 PO; -BUSP5TA PO; -LISI-898 PO; -MAGN400C2 PO; -VITA1TAB26 PO
[2021-05-11 12:50] VITALS: BP 128/60
[2021-05-11] MEDS: MAG SULF 1GM/100ML (MAG RUN) X 2 DOSES (2GM TOTAL) IV SCH ×4 (13:08→13:59)
[2021-05-11] MEDS ORDERED: LISI-898 PO (13:12)
[2021-05-11] MEDS ORDERED: MAGN400C2 PO (13:13)
[2021-05-11] MEDS ORDERED: VITA1TAB26 PO (13:13)
[2021-05-11] MEDS ORDERED: ATOR1TAB19 PO (13:15)
[2021-05-11] MEDS ORDERED: BUSP5TA PO (13:15)
[2021-05-11 14:15] VITALS: BP 119/59
[2021-05-11 15:15] VITALS: BP 133/64
== END 2021-05-11 15:15 | disposition home or self-care (01) ==
LOC: M INFU 12:48
PROVIDERS: ATTEND Nurse Practitioner Family
DX: E16.2 Hypoglycemia, unspecified (principal); Z91.040 Latex allergy status
CPT/HCPCS: 96365; 96366; J3475

== ENCOUNTER → 2021-10-27 | Outpatient (REF) | payer OTHER ==
[~2021-10-27] MED LIST changes: +ATOR1TAB19 PO; +BUSP5TA PO; +LISI5TAB11 PO; +MAGN400C2 PO; +VITA1TAB26 PO
== END ==
LOC: M SFHCCLAY 11:13
PROVIDERS: ATTEND Nurse Practitioner Family
DX: S70.262A Insect bite (nonvenomous), left hip, initial encounter (principal); W57.XXXA Bitten or stung by nonvenomous insect and other nonvenomous arthropods, initial encounter; W18.30XA Fall on same level, unspecified, initial encounter

== ENCOUNTER → 2021-11-01 | Outpatient (REF) | payer OTHER ==
[2021-11-01 16:08] LABS: BASO # 0.1 10^3/uL (0.0-0.2); BASO % 0.6 % (0.0-1.0); EOS # 0.2 10^3/uL (0.0-0.5); EOS % 2.2 % (0.0-3.0); HEMATOCRIT 37.4 % (36.0-47.0); HEMOGLOBIN 11.8 g/dl (12.0-15.5); LYMPH # 3.6 10^3/uL (1.5-5.0); LYMPH % 43.7 % (24.0-44.0); MEAN CORPUSCULAR HEMOGLOBIN 27.7 pg (27.0-33.0); MEAN CORPUSCULAR HGB CONC 31.6 g/dl (32.0-36.5); MEAN CORPUSCULAR VOLUME 87.8 fl (80.0-96.0); MONO # 0.4 10^3/uL (0.0-0.8); NEUTROPHILS % 48.3 % (36.0-66.0); PLATELET COUNT, AUTOMATED 214 10^3/uL (150-450); RED BLOOD COUNT 4.26 10^6/uL (4.00-5.40); WHITE BLOOD COUNT 8.2 10^3/uL (4.0-10.0)
[2021-11-01 16:48] LABS: BILIRUBIN,TOTAL 0.7 MG/DL (0.2-1.0); CALCIUM LEVEL 9.8 MG/DL (8.8-10.2); CHOLESTEROL RISK RATIO 2.875 (<5); CREATININE FOR GFR 1.08 MG/DL (0.55-1.30); FREE T4 1.16 NG/DL (0.76-1.46); GLOMERULAR FILTRATION RATE 54.5 (>45); MAGNESIUM LEVEL 1.4 MG/DL (1.8-2.4); THYROID STIMULATING HORMONE 0.785 uIU/ML (0.358-3.740); TOTAL PROTEIN 7.2 GM/DL (6.4-8.2)
[2021-11-01 18:09] LABS: HEMOGLOBIN A1c 5.9 %
== END ==
LOC: M SFHCCLAY 10:30
PROVIDERS: ATTEND Nurse Practitioner Family
DX: E83.42 Hypomagnesemia (principal); E11.40 Type 2 diabetes mellitus with diabetic neuropathy, unspecified; E78.5 Hyperlipidemia, unspecified; I10 Essential (primary) hypertension; K21.9 Gastro-esophageal reflux disease without esophagitis

== ENCOUNTER → 2022-04-27 | Outpatient (REF) | payer OTHER ==
[~2022-04-27] MED LIST changes: +ASPI-161 PO
[2022-04-27 11:29] LABS: BASO # 0.1 10^3/uL (0.0-0.2); BASO % 0.7 % (0.0-1.0); EOS # 0.2 10^3/uL (0.0-0.5); EOS % 1.9 % (0.0-3.0); HEMATOCRIT 39.2 % (36.0-47.0); HEMOGLOBIN 12.3 g/dl (12.0-15.5); LYMPH # 3.3 10^3/uL (1.5-5.0); LYMPH % 39.4 % (24.0-44.0); MEAN CORPUSCULAR HEMOGLOBIN 28.5 pg (27.0-33.0); MEAN CORPUSCULAR HGB CONC 31.4 g/dl (32.0-36.5); MEAN CORPUSCULAR VOLUME 90.7 fl (80.0-96.0); MONO # 0.5 10^3/uL (0.0-0.8); MONO % 6.3 % (2.0-8.0); NEUTROPHILS # 4.3 10^3/uL (1.5-8.5); NEUTROPHILS % 51.6 % (36.0-66.0); PLATELET COUNT, AUTOMATED 203 10^3/uL (150-450); RED BLOOD COUNT 4.32 10^6/uL (4.00-5.40); WHITE BLOOD COUNT 8.3 10^3/uL (4.0-10.0)
[2022-04-27 11:58] LABS: HEMOGLOBIN A1c 5.7 %
[2022-04-27 12:43] LABS: ALBUMIN 4.1 GM/DL (3.2-5.2); ALT/SGPT 15 U/L (12-78); BLOOD UREA NITROGEN 22 MG/DL (7-18); CALCIUM LEVEL 9.5 MG/DL (8.8-10.2); CARBON DIOXIDE LEVEL 29 MEQ/L (21-32); CHLORIDE LEVEL 103 MEQ/L (98-107); CHOLESTEROL LEVEL 148 MG/DL (<200); CHOLESTEROL RISK RATIO 2.596 (<5); CREATININE FOR GFR 0.98 MG/DL (0.55-1.30); GLOMERULAR FILTRATION RATE > 60.0 (>45); GLUCOSE, FASTING 119 MG/DL (70-100); HDL CHOLESTEROL 57 MG/DL (>40); LDL CHOLESTEROL 65 MG/DL (<100); MAGNESIUM LEVEL 1.4 MG/DL (1.8-2.4); NON-HDL-C 91 MG/DL; POTASSIUM SERUM 4.2 MEQ/L (3.5-5.1); SODIUM LEVEL 139 MEQ/L (136-145); TOTAL PROTEIN 7.2 GM/DL (6.4-8.2); TRIGLYCERIDES LEVEL 132 MG/DL (<150)
== END ==
LOC: M SFHCCLAY 08:31
PROVIDERS: ATTEND Nurse Practitioner Family
DX: E11.40 Type 2 diabetes mellitus with diabetic neuropathy, unspecified (principal); E83.42 Hypomagnesemia; E78.5 Hyperlipidemia, unspecified; I10 Essential (primary) hypertension; K21.9 Gastro-esophageal reflux disease without esophagitis; K80.11 Calculus of gallbladder with chronic cholecystitis with obstruction

== ENCOUNTER → 2022-04-30 | Outpatient (CLI) | payer OTHER | LOC: M LABSMTC 09:13 | PROVIDERS: ATTEND Anesthesiology | DX: Z01.812 Encounter for preprocedural laboratory examination (principal); Z20.822 Contact with and (suspected) exposure to COVID-19 ==

== ENCOUNTER 2022-05-03 09:09 | Day surgery (SDC) | payer OTHER ==
[~2022-05-03] VITALS: Ht 152.4 cm; Wt 78.5 kg
[~2022-05-03 09:09] MED LIST changes: +AMPICILLIN SOD/SULBACTAM SOD 3 GM in D5W MINI-BAG PLUS 100 ML IV ONE; +CelecoXIB 400 MG CAP PO ONE; +INDOCYANINE GREEN 25MG VIAL (IC-GREEN) IV ONE
[2022-05-03] MEDS ORDERED: LR 1,000 ML IV SCH ×2 (10:25→15:55)
[2022-05-03] MEDS ORDERED: ONDANSETRON 4MG 2ML VIAL As Ordered ONE (13:27)
[2022-05-03] MEDS ORDERED: dexameTHASONE 4 MG/ML 1ML VIAL (J1100 PER 1MG) As Ordered ONE (13:27)
[2022-05-03] MEDS ORDERED: LIDOCAINE 2% 100MG/5ML SDV (FOR ANES.) As Ordered ONE (13:27)
[2022-05-03] MEDS ORDERED: fentaNYL 250 MCG/5 ML INJECTION As Ordered ONE (13:27)
[2022-05-03] MEDS ORDERED: MIDAZOLAM INJ 2MG/2ML VIAL (J2250 PER 1MG) As Ordered ONE (13:27)
[2022-05-03] MEDS ORDERED: propofoL 200 MG/20 ML VIAL As Ordered ONE (13:27)
[2022-05-03] MEDS ORDERED: ROCURONIUM BROMIDE 50 MG/5 ML VIAL As Ordered ONE (13:27)
[2022-05-03] MEDS ORDERED: SUGAMMADEX SODIUM 500 MG/5 ML VIAL (BRIDION) As Ordered ONE (13:27)
[2022-05-03] MEDS ORDERED: METOCLOPRAMIDE INJ 10MG/2ML VIAL (J2765 PER 1) As Ordered ONE (13:27)
[2022-05-03] MEDS ORDERED: KETOROLAC 60MG 2ML VIAL As Ordered ONE (13:27)
[2022-05-03] MEDS ORDERED: LIDOCAINE 1% SDV 30ML VIAL As Ordered ONE (13:39)
[2022-05-03] MEDS ORDERED: INDOCYANINE GREEN 25MG VIAL (IC-GREEN) As Ordered ONE (13:39)
[2022-05-03] MEDS ORDERED: BUPIVACAINE HCL 0.25% 30ML VIAL As Ordered ONE (13:39)
[2022-05-03] MEDS ORDERED: METOPROLOL 5 MG/5 ML VIAL As Ordered ONE (14:09)
[2022-05-03] MEDS ORDERED: ACETAMINOPHEN 1000MG 100ML IV BAG As Ordered ONE (14:10)
[2022-05-03] MEDS ORDERED: oxyCODONE 5MG TAB PO PRN (15:55)
[2022-05-03] MEDS ORDERED: fentaNYL 100 MCG/2 ML INJECTION IV PRN (15:55)
[2022-05-03] MEDS ORDERED: HYDROMORPHONE HCL 0.5 MG/ 0.5 ML SYRINGE (J1170 PER 1) IV PRN (15:55)
[2022-05-03] MEDS ORDERED: ONDANSETRON 4MG 2ML VIAL IV PRN (15:55)
[2022-05-03] MEDS ORDERED: INSULIN LISPRO (NovoLOG) PER UNIT SC PRN (16:30)
[2022-05-03] MEDS: LABETALOL 100MG/20ML VIAL IV PRN ×5 (16:38→17:09)
[2022-05-03 17:46] VITALS: BP 150/67
== END 2022-05-03 17:49 | disposition home or self-care (01) ==
LOC: M SDC 09:09
PROVIDERS: ATTEND Surgery
DX: K80.10 Calculus of gallbladder with chronic cholecystitis without obstruction (principal); M79.7 Fibromyalgia; I25.10 Atherosclerotic heart disease of native coronary artery without angina pectoris; E78.5 Hyperlipidemia, unspecified; E11.9 Type 2 diabetes mellitus without complications; Z95.1 Presence of aortocoronary bypass graft; Z95.0 Presence of cardiac pacemaker; Z95.810 Presence of automatic (implantable) cardiac defibrillator; Z79.84 Long term (current) use of oral hypoglycemic drugs; Z79.899 Other long term (current) drug therapy; Z91.040 Latex allergy status; Z91.018 Allergy to other foods; Z91.010 Allergy to peanuts; F41.9 Anxiety disorder, unspecified; F32.A Depression, unspecified
CPT/HCPCS: 47562; 88304; J0131; J0295; J1100; J1885; J2250; J2405; J2765; J3010; S2900

== ENCOUNTER → 2022-08-15 | Outpatient (REF) | payer OTHER ==
[~2022-08-15] MED LIST changes: -AMPICILLIN SOD/SULBACTAM SOD 3 GM in D5W MINI-BAG PLUS 100 ML IV ONE; -CelecoXIB 400 MG CAP PO ONE; -INDOCYANINE GREEN 25MG VIAL (IC-GREEN) IV ONE
[2022-08-15 17:52] LABS: ALBUMIN 3.8 G/DL (3.2-5.2); ALKALINE PHOSPHATASE 53 U/L (46-116); ALT/SGPT 11 U/L (7.0-40); AST/SGOT 17 U/L (<34); BILIRUBIN,TOTAL 0.8 MG/DL (0.3-1.2); BLOOD UREA NITROGEN 26 MG/DL (9-23); CALCIUM LEVEL 8.7 MG/DL (8.3-10.6); CARBON DIOXIDE LEVEL 29 MMOL/L (20-31); CHLORIDE LEVEL 103 MMOL/L (98-107); GLUCOSE, FASTING 126 MG/DL (74-106); MAGNESIUM LEVEL 1.5 MG/DL (1.8-2.4); POTASSIUM SERUM 4.7 MMOL/L (3.5-5.1); SODIUM LEVEL 139 MMOL/L (136-145); TOTAL PROTEIN 6.7 G/DL (5.7-8.2)
[2022-08-15 20:28] LABS: CREATININE FOR GFR 0.83 MG/DL (0.55-1.30); GLOMERULAR FILTRATION RATE > 60.0 (>45)
== END ==
LOC: M SFHCCLAY 13:42
PROVIDERS: ATTEND Nurse Practitioner Family
DX: E11.40 Type 2 diabetes mellitus with diabetic neuropathy, unspecified (principal)

== ENCOUNTER → 2022-08-30 | Outpatient (CLI) | payer OTHER | LOC: M CLY 13:38 | PROVIDERS: ATTEND Nurse Practitioner Family | DX: R05.2 Subacute cough (principal) ==

== ENCOUNTER → 2022-10-23 | Outpatient (REF) | payer OTHER ==
[2022-10-23 17:59] LABS: BASO # 0.1 10^3/uL (0.0-0.2); BASO % 0.9 % (0.0-1.0); EOS # 0.3 10^3/uL (0.0-0.5); EOS % 3.3 % (0.0-3.0); HEMATOCRIT 38.1 % (36.0-47.0); HEMOGLOBIN 11.8 g/dl (12.0-15.5); LYMPH # 3.4 10^3/uL (1.5-5.0); LYMPH % 42.4 % (24.0-44.0); MEAN CORPUSCULAR HEMOGLOBIN 28.5 pg (27.0-33.0); MONO # 0.4 10^3/uL (0.0-0.8); MONO % 5.1 % (2.0-8.0); NEUTROPHILS # 3.9 10^3/uL (1.5-8.5); NEUTROPHILS % 48.2 % (36.0-66.0); PLATELET COUNT, AUTOMATED 189 10^3/uL (150-450); RED BLOOD COUNT 4.14 10^6/uL (4.00-5.40); WHITE BLOOD COUNT 8.1 10^3/uL (4.0-10.0)
[2022-10-23 18:34] LABS: THYROID STIMULATING HORMONE 1.211 uIU/ML (0.55-4.78)
[2022-10-23 18:35] LABS: ALBUMIN 3.6 G/DL (3.2-5.2); ALKALINE PHOSPHATASE 55 U/L (46-116); ALT/SGPT < 9 U/L (7.0-40); AST/SGOT 15 U/L (<34); BILIRUBIN,TOTAL 0.7 MG/DL (0.3-1.2); BLOOD UREA NITROGEN 27 MG/DL (9-23); CARBON DIOXIDE LEVEL 29 MMOL/L (20-31); CHLORIDE LEVEL 106 MMOL/L (98-107); CHOLESTEROL LEVEL 135 MG/DL (<200); CHOLESTEROL RISK RATIO 2.36 (<5); CREATININE FOR GFR 0.85 MG/DL (0.55-1.30); GLOMERULAR FILTRATION RATE > 60.0 (>45); GLUCOSE, FASTING 121 MG/DL (74-106); LDL CHOLESTEROL 45.2 MG/DL (<100); MAGNESIUM LEVEL 1.4 MG/DL (1.8-2.4); SODIUM LEVEL 138 MMOL/L (136-145); TOTAL PROTEIN 6.4 G/DL (5.7-8.2); TRIGLYCERIDES LEVEL 164 MG/DL (<150)
[2022-10-23 18:37] LABS: FREE T4 1.01 NG/DL (0.89-1.76)
[2022-10-23 18:50] LABS: HEMOGLOBIN A1c 5.8 % (4.0-6.0)
== END ==
LOC: M SFHCCLAY 10:19
PROVIDERS: ATTEND Nurse Practitioner Family
DX: E11.40 Type 2 diabetes mellitus with diabetic neuropathy, unspecified (principal); E83.42 Hypomagnesemia; E78.5 Hyperlipidemia, unspecified; I10 Essential (primary) hypertension; K21.9 Gastro-esophageal reflux disease without esophagitis; I25.708 Atherosclerosis of coronary artery bypass graft(s), unspecified, with other forms of angina pectoris

== ENCOUNTER → 2022-11-23 | Outpatient (CLI) | payer OTHER | LOC: M CLY 09:11 | PROVIDERS: ATTEND Nurse Practitioner Family | DX: J32.9 Chronic sinusitis, unspecified (principal) ==

== ENCOUNTER → 2022-12-18 | Outpatient (CLI) | payer OTHER | LOC: M RAD 11:43 | PROVIDERS: ATTEND Surgery Vascular Surgery | DX: I65.29 Occlusion and stenosis of unspecified carotid artery (principal) ==

== ENCOUNTER → 2023-03-12 | Outpatient (REF) | payer OTHER ==
[2023-03-12 20:38] LABS: ALBUMIN 3.7 G/DL (3.2-5.2); ALKALINE PHOSPHATASE 54 U/L (46-116); ALT/SGPT 16 U/L (7.0-40); AST/SGOT 13 U/L (<34); BASO % 0.5 % (0.0-1.0); BILIRUBIN,TOTAL 0.8 MG/DL (0.3-1.2); BLOOD UREA NITROGEN 30 MG/DL (9-23); CALCIUM LEVEL 8.7 MG/DL (8.3-10.6); CARBON DIOXIDE LEVEL 28 MMOL/L (20-31); CHLORIDE LEVEL 104 MMOL/L (98-107); CREATININE FOR GFR 0.87 MG/DL (0.55-1.30); EOS # 0.2 10^3/uL (0.0-0.5); EOS % 2.4 % (0.0-3.0); GLOMERULAR FILTRATION RATE > 60.0 (>45); GLUCOSE, FASTING 161 MG/DL (74-106); HEMATOCRIT 35.9 % (36.0-47.0); HEMOGLOBIN 11.4 g/dl (12.0-15.5); LYMPH % 36.7 % (24.0-44.0); MAGNESIUM LEVEL 1.1 MG/DL (1.8-2.4); MEAN CORPUSCULAR HEMOGLOBIN 28.6 pg (27.0-33.0); MEAN CORPUSCULAR HGB CONC 31.8 g/dl (32.0-36.5); MEAN CORPUSCULAR VOLUME 90.2 fl (80.0-96.0); MONO # 0.5 10^3/uL (0.0-0.8); MONO % 5.7 % (2.0-8.0); NEUTROPHILS # 4.5 10^3/uL (1.5-8.5); NEUTROPHILS % 54.3 % (36.0-66.0); PLATELET COUNT, AUTOMATED 188 10^3/uL (150-450); POTASSIUM SERUM 4.7 MMOL/L (3.5-5.1); RED BLOOD COUNT 3.98 10^6/uL (4.00-5.40); SODIUM LEVEL 140 MMOL/L (136-145); TOTAL PROTEIN 6.5 G/DL (5.7-8.2); WHITE BLOOD COUNT 8.2 10^3/uL (4.0-10.0)
== END ==
LOC: M SFHCCLAY 09:39
PROVIDERS: ATTEND Physician Assistant
DX: R32 Unspecified urinary incontinence (principal); R19.7 Diarrhea, unspecified

== ENCOUNTER → 2023-03-13 | Outpatient (CLI) | payer OTHER | LOC: M CLY 13:06 | PROVIDERS: ATTEND Physician Assistant | DX: M54.50 Low back pain, unspecified (principal); M25.551 Pain in right hip; M25.552 Pain in left hip; R19.7 Diarrhea, unspecified ==

== ENCOUNTER → 2023-04-24 | Outpatient (CLI) | payer OTHER ==
[2023-04-24 16:46] LABS: BLOOD UREA NITROGEN 21 MG/DL (9-23); CALCIUM LEVEL 9.5 MG/DL (8.3-10.6); CARBON DIOXIDE LEVEL 28 MMOL/L (20-31); CHLORIDE LEVEL 103 MMOL/L (98-107); CREATININE FOR GFR 0.81 MG/DL (0.55-1.30); GLOMERULAR FILTRATION RATE > 60.0 (>45); GLUCOSE, FASTING 144 MG/DL (74-106); POTASSIUM SERUM 4.6 MMOL/L (3.5-5.1); SODIUM LEVEL 140 MMOL/L (136-145)
== END ==
LOC: M PLALAB 12:18
PROVIDERS: ATTEND Nurse Practitioner Family
DX: I25.5 Ischemic cardiomyopathy (principal)

== ENCOUNTER → 2023-05-01 | Outpatient (REF) | payer OTHER ==
[2023-05-01 18:59] LABS: ALKALINE PHOSPHATASE 55 U/L (46-116); ALT/SGPT 13 U/L (7.0-40); AST/SGOT 10 U/L (<34); BLOOD UREA NITROGEN 32 MG/DL (9-23); CALCIUM LEVEL 9.4 MG/DL (8.3-10.6); CARBON DIOXIDE LEVEL 28 MMOL/L (20-31); CHLORIDE LEVEL 103 MMOL/L (98-107); CREATININE FOR GFR 0.83 MG/DL (0.55-1.30); GLOMERULAR FILTRATION RATE > 60.0 (>45); GLUCOSE, FASTING 165 MG/DL (74-106); MAGNESIUM LEVEL 1.2 MG/DL (1.8-2.4); POTASSIUM SERUM 4.9 MMOL/L (3.5-5.1); SODIUM LEVEL 140 MMOL/L (136-145)
[2023-05-01 19:49] LABS: HEMOGLOBIN A1c 6.6 % (4.0-6.0)
== END ==
LOC: M SFHCCLAY 10:34
PROVIDERS: ATTEND Nurse Practitioner Family
DX: E11.40 Type 2 diabetes mellitus with diabetic neuropathy, unspecified (principal); E83.42 Hypomagnesemia; E78.5 Hyperlipidemia, unspecified; I10 Essential (primary) hypertension; K21.9 Gastro-esophageal reflux disease without esophagitis; I25.708 Atherosclerosis of coronary artery bypass graft(s), unspecified, with other forms of angina pectoris

== ENCOUNTER → 2023-05-31 | Outpatient (CLI) | payer OTHER | LOC: M PLAIMG 08:52 | PROVIDERS: ATTEND Nurse Practitioner Family | DX: M43.9 Deforming dorsopathy, unspecified (principal); M51.26 Other intervertebral disc displacement, lumbar region; M47.816 Spondylosis without myelopathy or radiculopathy, lumbar region; M48.061 Spinal stenosis, lumbar region without neurogenic claudication; M48.04 Spinal stenosis, thoracic region; M85.88 Other specified disorders of bone density and structure, other site ==

== ENCOUNTER → 2023-11-06 | Outpatient (REF) | payer OTHER ==
[~2023-11-06] MED LIST changes: -ASPI-161 PO; +ASPI-615 PO
[2023-11-06 18:02] LABS: BASO # 0.1 10^3/uL (0.0-0.2); BASO % 0.6 % (0.0-1.0); EOS # 0.2 10^3/uL (0.0-0.5); EOS % 2.3 % (0.0-3.0); HEMATOCRIT 41.6 % (36.0-47.0); HEMOGLOBIN 13.1 g/dl (12.0-15.5); LYMPH # 3.4 10^3/uL (1.5-5.0); LYMPH % 44.4 % (24.0-44.0); MEAN CORPUSCULAR HEMOGLOBIN 27.6 pg (27.0-33.0); MEAN CORPUSCULAR HGB CONC 31.5 g/dl (32.0-36.5); MEAN CORPUSCULAR VOLUME 87.6 fl (80.0-96.0); MONO # 0.5 10^3/uL (0.0-0.8); MONO % 6.6 % (2.0-8.0); NEUTROPHILS # 3.5 10^3/uL (1.5-8.5); NEUTROPHILS % 45.8 % (36.0-66.0); PLATELET COUNT, AUTOMATED 187 10^3/uL (150-450); RED BLOOD COUNT 4.75 10^6/uL (4.00-5.40); WHITE BLOOD COUNT 7.7 10^3/uL (4.0-10.0)
[2023-11-06 18:11] LABS: HEMOGLOBIN A1c 6.8 % (4.0-6.0)
[2023-11-06 18:14] LABS: THYROID STIMULATING HORMONE 1.043 uIU/ML (0.55-4.78); TOTAL 25(OH) VITAMIN D 32.7 NG/ML (20.0-100.0)
[2023-11-06 18:15] LABS: ALBUMIN 3.9 G/DL (3.2-5.2); ALKALINE PHOSPHATASE 59 U/L (46-116); ALT/SGPT 14 U/L (7.0-40); AST/SGOT 11 U/L (<34); BILIRUBIN,TOTAL 0.8 MG/DL (0.3-1.2); BLOOD UREA NITROGEN 27 MG/DL (9-23); CALCIUM LEVEL 9.1 MG/DL (8.3-10.6); CARBON DIOXIDE LEVEL 28 MMOL/L (20-31); CHLORIDE LEVEL 105 MMOL/L (98-107); CHOLESTEROL LEVEL 130 MG/DL (<200); CREATININE FOR GFR 0.96 MG/DL (0.55-1.30); FREE T4 1.17 NG/DL (0.89-1.76); GLOMERULAR FILTRATION RATE > 60.0 (>45); GLUCOSE, FASTING 141 MG/DL (74-106); HDL CHOLESTEROL 49.9 MG/DL (>40); LDL CHOLESTEROL 46.5 MG/DL (<100); MAGNESIUM LEVEL 1.3 MG/DL (1.8-2.4); NON-HDL-C 80.1 MG/DL; POTASSIUM SERUM 4.8 MMOL/L (3.5-5.1); SODIUM LEVEL 142 MMOL/L (136-145); TOTAL PROTEIN 6.8 G/DL (5.7-8.2); TRIGLYCERIDES LEVEL 168 MG/DL (<150)
== END ==
LOC: M SFHCCLAY 10:28
PROVIDERS: ATTEND Nurse Practitioner Family
DX: Z00.00 Encounter for general adult medical examination without abnormal findings (principal); E11.40 Type 2 diabetes mellitus with diabetic neuropathy, unspecified; E83.42 Hypomagnesemia; E78.5 Hyperlipidemia, unspecified; I10 Essential (primary) hypertension; K21.9 Gastro-esophageal reflux disease without esophagitis; I25.708 Atherosclerosis of coronary artery bypass graft(s), unspecified, with other forms of angina pectoris; M43.9 Deforming dorsopathy, unspecified; Z79.899 Other long term (current) drug therapy

== ENCOUNTER → 2023-12-20 | Outpatient (CLI) | payer OTHER | LOC: M RAD 08:36 | PROVIDERS: ATTEND Physician Assistant | DX: I65.23 Occlusion and stenosis of bilateral carotid arteries (principal) ==

== ENCOUNTER 2024-02-14 11:22 | Emergency (ER) | payer OTHER ==
[~2024-02-14] VITALS: Ht 152.4 cm; Wt 81.8 kg
[2024-02-14 11:23] VITALS: BP 144/62; TEMP 98; O2SAT 98
== END 2024-02-14 13:37 | disposition home or self-care (01) ==
LOC: M ED 11:22
DX: H53.9 Unspecified visual disturbance (principal); E11.9 Type 2 diabetes mellitus without complications; F41.9 Anxiety disorder, unspecified; F32.A Depression, unspecified; I10 Essential (primary) hypertension; E78.5 Hyperlipidemia, unspecified; G47.33 Obstructive sleep apnea (adult) (pediatric); Z91.010 Allergy to peanuts; Z91.040 Latex allergy status; Z91.018 Allergy to other foods; Z79.82 Long term (current) use of aspirin; Z79.02 Long term (current) use of antithrombotics/antiplatelets; Z79.811 Long term (current) use of aromatase inhibitors; Z79.4 Long term (current) use of insulin; Z79.899 Other long term (current) drug therapy

== ENCOUNTER → 2024-05-09 | Outpatient (REF) | payer OTHER ==
[2024-05-09 18:03] LABS: ALBUMIN 3.6 G/DL (3.2-5.2); ALKALINE PHOSPHATASE 46 U/L (35-104); ALT/SGPT 10 U/L (7.0-40); AST/SGOT < 8 U/L (<34); BILIRUBIN,TOTAL 0.7 MG/DL (0.3-1.2); BLOOD UREA NITROGEN 30 MG/DL (9-23); CALCIUM LEVEL 8.9 MG/DL (8.3-10.6); CARBON DIOXIDE LEVEL 29 MMOL/L (20-31); CHLORIDE LEVEL 105 MMOL/L (98-107); CREATININE FOR GFR 0.89 MG/DL (0.55-1.30); GLOMERULAR FILTRATION RATE > 60.0 (>45); GLUCOSE, FASTING 129 MG/DL (74-106); MAGNESIUM LEVEL 1.3 MG/DL (1.8-2.4); SODIUM LEVEL 141 MMOL/L (136-145); TOTAL PROTEIN 6.5 G/DL (5.7-8.2)
[2024-05-09 18:22] LABS: HEMOGLOBIN A1c 6.8 % (4.0-6.0)
== END ==
LOC: M SFHCCLAY 10:21
PROVIDERS: ATTEND Nurse Practitioner Family
DX: Z00.00 Encounter for general adult medical examination without abnormal findings (principal); E11.40 Type 2 diabetes mellitus with diabetic neuropathy, unspecified; E83.42 Hypomagnesemia; E78.5 Hyperlipidemia, unspecified; I10 Essential (primary) hypertension; K21.9 Gastro-esophageal reflux disease without esophagitis; I25.708 Atherosclerosis of coronary artery bypass graft(s), unspecified, with other forms of angina pectoris; M43.9 Deforming dorsopathy, unspecified

== ENCOUNTER → 2024-08-11 | Outpatient (CLI) | payer MEDICARE, OTHER | LOC: M RAD 09:06 | PROVIDERS: ATTEND Nurse Practitioner Family | DX: M62.08 Separation of muscle (nontraumatic), other site (principal) ==

== ENCOUNTER → 2025-03-02 | Outpatient (CLI) | payer MEDICARE, MEDICAID | LOC: M RAD 10:48 | PROVIDERS: ATTEND Physician Assistant | DX: I65.23 Occlusion and stenosis of bilateral carotid arteries (principal) ==

== ENCOUNTER → 2025-04-16 | Outpatient (CLI) | payer MEDICARE, MEDICAID ==
[~2025-04-16] MED LIST changes: +ISOVUE-370 76% 100 ML VIAL As Ordered ONE
== END ==
LOC: M RAD 09:55
PROVIDERS: ATTEND Surgery Vascular Surgery
DX: I65.23 Occlusion and stenosis of bilateral carotid arteries (principal); I67.2 Cerebral atherosclerosis; I70.0 Atherosclerosis of aorta; E04.2 Nontoxic multinodular goiter
CPT/HCPCS: 70496; 70498; 82565; Q9967